=== PATIENT | female | born 1975 | race Caucasian/White ===

== ENCOUNTER 2020-12-07 21:16 | Emergency (ER) | payer OTHER, SELFPAY ==
--- NOTE | ~2020-12-07 | CT_ITS ---
EXAMINATION: CT abdomen pelvis w con DATE: 12/08/2020 00:23 INDICATION: Lower abdominal tenderness and vomiting. TECHNIQUE: Computed tomography (CT) of the abdomen and pelvis was performed with 100 mL Omnipaque-350 intravenous contrast. Automated exposure control and iterative reconstruction technique were employe d. The dose-length product was 387.77 mGy-cm. COMPARISON: None FINDINGS: Lung bases are clear. Heart size is normal. No pericardial or pleural effusion. Cholecystectomy clips at the gallbladder fossa. Liver, spleen, pancreas, bilateral adrenal glands and kidneys are normal. Normal appendix. No bowel obstruction. Bladder is normal. A couple nabothian cysts at the cervix. Pat ient is reportedly post hysterectomy with small amount of residual lower uterine segment. Several sma ll fluid-filled structures at the left adnexa which could represent ovarian cysts/follicles or potent ially a hydrosalpinx measuring up to 1.9 cm in maximal diameter. No free intraperitoneal gas or fluid . No pathologically enlarged abdominal or pelvic lymphadenopathy. Bones are unremarkable. IMPRESSION: 1. No acute intra-abdominal/pelvic process. 2. Several small left ovarian cysts/follicles versus potentially a left hydrosalpinx. Reviewed, dictated and finalized at location A. IMPRESSION: 1. No acute intra-abdominal/pelvic process. 2. Several small left ovarian cysts/follicles versus potentially a left hydrosa lpinx.
[2020-12-07 21:18] VITALS: BP 117/63; PULSE 83; RESP 20; TEMP 36.4; O2SAT 100
[2020-12-07 21:41] LABS: Basophils Percent Auto 0.4 % (0.2-1.2); Eosinophils Absolute Auto 0.2 K/mm3 (0-0.3); Eosinophils Percent Auto 1.4 % (0-4.4); Hematocrit 43.9 % (37.0-47.0); Hemoglobin 14.5 g/dL (12.0-15.0); Immature Granulocyte Absolute 0.04 K/mm3 (0.00-0.031); Immature Granulocyte Percent A 0.4 % (0-0.5); Lymphocytes Absolute Auto 1.16 K/mm3 (0.9-3.2); Lymphocytes Percent Auto 11.1 % (18.3-44.2); Mean Corpuscular Hemoglobin 28.8 pg (26-34); Mean Corpuscular Volume 87.3 fl (80-100); Monocytes Absolute Auto 1.2 K/mm3 (0.1-0.6); Neutrophils Absolute Auto 7.9 K/mm3 (1.3-6.7); Neutrophils Percent Auto 75.7 % (45.5-73.1); Platelet Count Result 334 k/mm3 (150-375); Red Blood Count 5.03 M/mm3 (4.2-5.4); Red Cell Distribution Width 13.2 % (11.5-14.5); White Blood Count 10.5 K/mm3 (4.5-10.0)
[2020-12-07 21:48] LABS: Add Urine Microscopic? YES; Appearance Urine Cloudy (Clear); Bacteria Urine Trace /hpf; Bilirubin Urine Negative (Negative); Blood Urine Negative (Negative); Color Urine Yellow (Yellow); Glucose Urine UA Negative (Negative); Ketones Urine 1+ mg/dL (Negative); Leukocyte Esterase Ur 2+ LEU/UL (Negative); Mucus Urine Rare /lpf; Nitrate Urine Negative (Negative); Protein Urine 2+ mg/dL (Negative); Specific Grav Ur 1.027 (1.001-1.035); Squamous Epithelial Cell Urine Many /hpf (Few); WBC Urine 0-3 /hpf
[2020-12-07 21:53] LABS: Alanine Aminotransferase 38 U/L (4-35); Albumin Level 3.9 g/dL (3.5-5.1); Alkaline Phosphatase 67 U/L (38-126); Anion Gap 4 mmol/L (8-16); Aspartate Amino Transferase 79 U/L (14-36); Blood Urea Nitrogen 19 mg/dL (7-17); Calcium 8.3 mg/dL (8.4-10.2); Carbon Dioxide 26 mmol/L (22-30); Chloride 107 mmol/L (98-107); Estimated CRCL calculation 80 ml/min; Estimated Glomerular Filt Rate > 60; Glucose 108 mg/dL (65-105); Lipase 85 U/L (23-300); Potassium 3.7 mmol/L (3.4-5.0); Sodium 137 mmol/L (137-145)
[2020-12-07 22:54] VITALS: BP 115/61; PULSE 79; RESP 18; O2SAT 99
--- NOTE | 2020-12-07 23:36 | ED.ABDPAIN ---
HPI - Abdominal Pain General Chief Complaint: Abdominal Pain Stated Complaint: severe abd pain Time Seen by Provider: 12/07/20 23:12 Source: patient Mode of arrival: ambulatory Limitations: no limitations History of Present Illness HPI narrative: This is a 45 year old female who presents for evaluation of right upper abdominal pain. She woke up with pain at 230 am this morning, and her pain has been constant. She also reports she has had nausea with 7 episodes of vomiting. She denies diarrhea, fever or chills. She has tried taking Tums and Zofran without relief of her symptoms. She denies UTI symptoms. She reports having similar pain many years ago and a GI cocktail helped with her pain. Related Data Allergies Allergy/AdvReac Type Severity Reaction Status Date / Time latex Allergy Unknown Unknown Verified 12/02/18 11:24 Review of Systems Review of Systems: All systems reviewed & are unremarkable except as noted in HPI and below Constitutional: Constitutional: Denies chills and Denies fever(s) Cardiovascular: Cardiovascular: Denies chest pain Respiratory: Respiratory: Denies cough and Denies dyspnea Gastrointestinal: Gastrointestinal: Reports abdominal pain, Reports nausea and Reports vomiting [facility] Past Medical History Medical History (Updated 12/08/20 @ 01:29 by Mary Anne Sal MD) Fibromyalgia UTI (urinary tract infection) Surgical History Surgical History (Updated 12/07/20 @ 23:41 by Mary Anne Sal MD) H/O section H/O: hysterectomy Hx of cholecystectomy Social History Social History (Updated 12/07/20 @ 23:41 by Mary Anne Sal MD) Smoking status: Current every day smoker Alcohol intake: never Substance use: never Exam Const: General: no acute distress and alert Orientation/consciousness: patient oriented x3 Chest: Chest palpation & inspection: normal inspection of the chest Resp: Effort & Inspection: normal respiratory effort and no retractions Auscultation: clear to auscultation bilaterally Cardio: Rate: regular rate Rhythm: regular rhythm Heart sounds: no murmurs GI: GI Palp: Yes Soft to palpation, Yes Tenderness to palpation present (GI) (RLQ, suprapubic) and No Guarding due to palpation present (GI) Auscultation: normal bowel sounds Extrem: General: normal to inspection Psych: Mental Status: mental status grossly normal Affect: normal affect Course Reevaluation(s) Reevaluation #1: Patient reports she feels much better after IVF, ofirmev, and zofran. She was able to tolerate water and crackers. She states she is ready for discharge home. I reviewed CT scan resuls adams patient showing left ovarian cyst. Date: 12/08/20 Time: 01:24 Vital Signs Vital signs: Vital Signs Temperature 97.5 F L 12/07/20 21:18 Pulse Rate 83 12/07/20 21:18 Respiratory Rate 20 12/07/20 21:18 Blood Pressure 117/63 12/07/20 21:18 Pulse Oximetry 100 12/07/20 21:18 Temperature 97.5 F L 12/07/20 21:18 Pulse Rate 69 12/08/20 01:30 Respiratory Rate 18 12/08/20 01:30 Blood Pressure 114/60 12/08/20 01:30 Pulse Oximetry 99 12/08/20 01:30 MDM - Abdominal Pain Lab Data Attestation: I reviewed the patient's lab results. Result diagrams: 12/07/20 21:30 12/07/20 21:30 Labs: Lab Results 12/07/20 12/07/20 12/07/20 Range/Units 21:30 21:30 21:35 WBC 10.5 H (4.5-10.0) K/mm3 RBC 5.03 (4.2-5.4) M/mm3 Hgb 14.5 (12.0-15.0) g/dL Hct 43.9 (37.0-47.0) % MCV 87.3 (80-100) fl MCH 28.8 (26-34) pg MCHC 33.0 (32-36) g/dl RDW 13.2 (11.5-14.5) % Plt Count 334 (150-375) k/mm3 MPV 10.0 (7.4-10.4) fl Immature Gran % (Auto) 0.4 (0-0.5) % Neut % (Auto) 75.7 H (45.5-73.1) % Lymph % (Auto) 11.1 L (18.3-44.2) % Pickett % (Auto) 11.0 H (2.6-8.5) % Eos % (Auto) 1.4 (0-4.4) % Baso % (Auto) 0.4 (0.2-1.2) % Lymph # (Auto) 1.16 (0.9-3.2) K/mm3 Pickett # (
[2020-12-08] MEDS: ONDANSETRON INJ 4 MG/2 ML VIAL IV PUSH (00:05)
[2020-12-08] MEDS: LACTATED RINGERS 1,000 ML 999 ML IV CONT (00:06)
[2020-12-08 01:30] VITALS: BP 114/60; PULSE 69; RESP 18; O2SAT 99
== END 2020-12-08 01:41 | disposition home or self-care (01) ==
PROVIDERS: Emergency Medicine; Emergency Provider General Practice; PCP Nurse Practitioner Adult Health
DX: K52.9 Noninfective gastroenteritis and colitis, unspecified (principal); E86.0 Dehydration; N83.202 Unspecified ovarian cyst, left side; M79.7 Fibromyalgia; Z87.440 Personal history of urinary (tract) infections; F17.200 Nicotine dependence, unspecified, uncomplicated
CPT/HCPCS: 36415; 74177; 80053; 81001; 83690; 85025; 96365; 96375; 99284; J0131; J2405; J7120; Q9967

== ENCOUNTER 2021-02-16 17:27 | Emergency (ER) | payer OTHER, SELFPAY ==
--- NOTE | ~2021-02-16 | XR_ITS ---
EXAMINATION: XR chest 2V DATE: 02/16/2021 17:57 INDICATION: Cough and diminished breath sounds in the right lower lung. TECHNIQUE: PA and lateral views of the chest were obtained. COMPARISON: Chest radiograph dated 12/02/2018 FINDINGS: The lungs remain clear with no focal airspace opacities, pulmonary edema, pleural effusion or pneumot horax. The cardiomediastinal silhouette is normal. Cholecystectomy clips in the right upper quadrant. Bones and soft tissues are unremarkable. IMPRESSION: 1. No acute cardiopulmonary disease. Reviewed, dictated and finalized at location A.
[2021-02-16 17:35] VITALS: BP 127/74; PULSE 83; RESP 16; TEMP 37.1; O2SAT 100
--- NOTE | 2021-02-16 17:41 | ED.URI ---
HPI - URI/Sore Throat General Chief Complaint: Upper Respiratory Infection Stated Complaint: Coughing, Chest pain, Body pain Time Seen by Provider: 02/16/21 17:41 Source: patient and RN notes reviewed History of Present Illness HPI Narrative: Patient is a 45-year-old female who presents the urgent care with complaints of productive cough, body aches, fever, headache, nasal drainage. 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 Patient states symptoms started on Sunday evening and she has been taking [id number] allergy medication, sinus relief and Tylenol and ibuprofen for the fevers. Patient states that it hurts to take deep breaths and cough on the right side . No other acute complaints. No acute distress noted. Patient aware of the plan of care. Some parts of this dictation were generated by voice recognition software and may contain typographical and/or grammatical inaccuracies. Related Data Home Medications Medication Instructions Recorded Confirmed bupropion HCl 150 mg PO QAM 02/16/21 02/16/21 buspirone 10 mg PO DAILY 02/16/21 02/16/21 Allergies Allergy/AdvReac Type Severity Reaction Status Date / Time latex Allergy Unknown Hives Verified 02/16/21 17:46 Review of Systems Review of Systems: Narrative: CONSTITUTIONAL: Reports of fevers EYES: Denies visual changes, redness, or discharge. ENT: Reports of nasal drainage, rhinorrhea, congestion CARDIOVASCULAR: Denies chest pain, palpitations, or edema. RESPIRATORY: Reports a productive cough and pain with deep breathing without dyspnea GASTROINTESTINAL: Denies abdominal pain, nausea, vomiting, or diarrhea. GENITOURINARY: Denies dysuria or hematuria. SKIN: Denies rash or itching. MUSCULOSKELETAL: Denies back pain, joint pain. Reports of body aches NEUROLOGIC: Reported headaches All other systems reviewed are negative, except as documented in HPI. ON LICENSE OF [facility] Past Medical History Medical History (Updated 02/16/21 @ 18:30 by RINA Kinney) Fibromyalgia UTI (urinary tract infection) Surgical History Surgical History (System 01/26/21 @ 10:24 by Kulwant Jean) H/O section H/O: hysterectomy Hx of cholecystectomy Social History Social History (System 01/26/21 @ 10:24 by Kulwant A. Milbrandt) Smoking status: Current every day smoker Alcohol intake: never Substance use: never Comments At the time of my signature, I reviewed and agree with the nursing past medical, surgical, social, and family history. There is no relevant family history pertinent to the patient complaint. Exam Narrative: Exam Narrative: GENERAL: This is a well-nourished, well-developed patient, in no apparent distress. HEAD: normocephalic, atraumatic. EYES: PERRL. Sclera clear/white. Vision is grossly intact. EARS: External ears normal, auditory canals clear and without drainage, TMs normal without perforation. Hearing grossly intact. NOSE: External nose normal, bilateral erythemic nares with clear rhinorrhea, no rhinorrhea. THROAT: Mucous membranes moist, posterior pharynx clear. Mild postnasal drainage NECK: Neck supple, non-tender without lymphadenopathy CARDIOVASCULAR: Regular rate and rhythm without murmurs, gallops, or rubs. RESPIRATORY: Clear to auscultation. Slightly diminished right lower lung sound. No wheezes, rales, or rhonchi. SKIN: warm, intact with no suspicious lesions or rash, good texture and turgor. NEURO: awake, alert, and oriented to person, place and time. There were no obvious focal neurologic abnormalities. EXTREMITIES: No clubbing, cyanosis, or edema. Course Vital Signs Vital signs: Vital Signs Temperature 98.7 F 02/16/21 17:35 Pulse Rate 83 02/16/21 17:35 Respiratory Rate 16 02/16/21 17:35 Blood Pressure 127/74 02/16/21 17:35 Pulse Oximetry 100 02/16/21 17:35 Temperature 98.7 F 02/16/21 17:47 Pulse Rate 83 02/16/21 17:47 Respiratory Rate 16 06/
[2021-02-16 17:47] VITALS: BP 127/74; PULSE 83; RESP 16; TEMP 37.1; O2SAT 100
== END 2021-02-16 18:42 | disposition home or self-care (01) ==
PROVIDERS: Emergency Provider Nurse Practitioner Family; PCP Nurse Practitioner Adult Health
DX: J32.9 Chronic sinusitis, unspecified (principal); J30.89 Other allergic rhinitis; Z87.440 Personal history of urinary (tract) infections; M79.7 Fibromyalgia; F17.200 Nicotine dependence, unspecified, uncomplicated
CPT/HCPCS: 71046; 87081; 87804; 87880; 99213; G0463

== ENCOUNTER 2021-02-21 08:29 | Emergency (ER) | payer OTHER, SELFPAY ==
[2021-02-21 08:34] VITALS: BP 139/56; PULSE 79; RESP 18; TEMP 36.6; O2SAT 100
--- NOTE | 2021-02-21 08:40 | ED.GENADULT ---
HPI - General Adult General Chief complaint: Urogenital-Female Stated complaint: Possible UTI Time Seen by Provider: 02/21/21 08:41 Source: patient and RN notes reviewed Mode of arrival: ambulatory Limitations: no limitations History of Present Illness HPI narrative: 45-year-old female presents with urinary complaints for 1 day. Crystal reports increasing hematuria, pressure, burning, and frequency with urination this morning. Dysuria consist of burning, frequency, and urgency.? No treatment.? Denies fever. No significant pelvic pain. No vaginal discharge.? No concerns for STDs. Exacerbating factors urinating.? Denies vaginal bleeding. LMP hysterectomy.? No flank pain. Denies nausea, vomiting, and abdominal pain.? Tolerating liquids well.? Remains active. The patient reports she was diagnosed with COVID-28 December 2019. The patient reports she is not waiting for the results of a COVID-19 lab test. The patient reports she does not have chills, weakness, or fatigue. The patient reports she does not have a new or worsening cough or shortness of breath. Denies chest pain. The patient reports she does not have any rhinorrhea, congestion, sore throat, loss of taste or smell, and diarrhea. Denies recent traveling. Denies concerns for COVID-19 or exposures. At this time, the patient is not suspected of having COVID-19. Some parts of this dictation were generated by voice recognition software and may contain typographical and/or grammatical inaccuracies. Related Data Home Medications Medication Instructions Recorded Confirmed bupropion HCl 150 mg PO QAM 02/16/21 02/21/21 buspirone 10 mg PO DAILY 02/16/21 02/21/21 Allergies Allergy/AdvReac Type Severity Reaction Status Date / Time latex Allergy Unknown Hives Verified 02/21/21 08:38 Review of Systems Review of Systems: Narrative: CONSTITUTIONAL: Denies fever, chills, sweats. EYES: Denies visual changes, redness, discharge. ENT: Denies rhinorrhea, congestion, sore throat, otalgia. CARDIOVASCULAR: Denies chest pain, palpitations, edema. RESPIRATORY: Denies dyspnea, wheezing, cough. GASTROINTESTINAL: Denies abdominal pain, nausea, vomiting, diarrhea. GENITOURINARY: Complains of dysuria (burning, frequency, and urgency), hematuria. Denies abnormal discharge. SKIN: Denies rash or itching. MUSCULOSKELETAL: Denies acute back pain, joint pain, or myalgia. NEUROLOGIC: Denies numbness or focal weakness. PSYCHIATRIC: Denies anxiety or depression. All systems reviewed & are unremarkable except as noted in HPI and below. [facility] Past Medical History Medical History (Updated 02/21/21 @ 10:30 by RINA Donovan) Anxiety delivery delivered Cubital tunnel syndrome Fibromyalgia UTI (urinary tract infection) Surgical History Surgical History (Updated 02/21/21 @ 10:30 by RINA Donovan) H/O section X3 H/O: hysterectomy History of carpal tunnel surgery bilateral History of elbow surgery cubital tunnel release-bilateral application KIM did not see you under History of tonsillectomy Hx of cholecystectomy Family History Family History (Updated 02/21/21 @ 08:53 by RINA Donovan) Father Alive and well Mother Alive and well Social History Social History (Updated 02/21/21 @ 08:54 by RINA Donovan) Smoking status: Former smoker Tobacco type: cigarettes Second hand tobacco smoke exposure: No Smoking end date: 09/10/18 Alcohol intake: current Substance use: never Substance use type: does not use Living arrangements: with family Occupation/Education: occupation Gender identity (if verbalized by the patient): Female Sexual Orientation (if Verbalized by the Patient): Straight or Heterosexual Comments At time of signature, agree with the nurse past medical, surgical, social, and family history.? There is no relevant family history pertinent to the presenting compla [id number]. Exam Narrative: Exa
== END 2021-02-21 09:05 | disposition home or self-care (01) ==
PROVIDERS: Emergency Provider Nurse Practitioner Family; PCP Nurse Practitioner Adult Health
DX: R30.0 Dysuria (principal); Z87.891 Personal history of nicotine dependence; F41.9 Anxiety disorder, unspecified; M79.7 Fibromyalgia
CPT/HCPCS: 81003; 87077; 87086; 87088; 87186; 99213; G0463

== ENCOUNTER 2021-12-27 14:14 | Emergency (ER) | payer BC, OTHER, SELFPAY ==
[2021-12-27 14:20] VITALS: BP 135/82; PULSE 84; RESP 16; TEMP 36.8; O2SAT 99
--- NOTE | 2021-12-27 15:34 | ED.FEMALEGU ---
HPI - Female Genitourinary General Chief complaint: Ear Stated complaint: Ear Pain/Urinary Problem Time Seen by Provider: 12/27/21 15:34 Source: patient, RN notes reviewed and old records reviewed Mode of arrival: ambulatory Limitations: no limitations History of Present Illness HPI Narrative: 46 year old female who presents to [facility] care with complaint of urinary tract infection symptoms of burning with urination, urgency and frequency since Sunday. Patient also states complaints of left ear pain for the past week which has increased in intensity denies any nasal drainage cough or congestion, report pain to gland under left ear.. Patient denies any fevers or chills or sweats denies any nausea vomiting or diarrhea. Patient has been taking Azo and did take 2 doses of oral Bactrim she had leftover from previous urinary tract infection. Patient denies any vaginal discharge or any concern for STD exposure. MD elicited complaint: dysuria and UTI Pertinent past history: other (UTI) Related Data Home Medications Medication Instructions Recorded Confirmed bupropion HCl 150 mg PO QAM 02/16/21 02/21/21 buspirone 10 mg PO DAILY 02/16/21 02/21/21 Allergies Allergy/AdvReac Type Severity Reaction Status Date / Time latex Allergy Unknown Hives Verified 02/21/21 08:38 Review of Systems Review of Systems: CONSTITUTIONAL: Denies fever, chills, or sweats. EYES: Denies visual changes, redness, or discharge. ENT: Denies rhinorrhea, congestion, sore throat, positive for left otalgia. CARDIOVASCULAR: Denies chest pain, palpitations, or edema. RESPIRATORY: Denies cough or dyspnea. GASTROINTESTINAL: Denies abdominal pain, nausea, vomiting, or diarrhea. GENITOURINARY: Positive for dysuria denies any visible hematuria. SKIN: Denies rash or itching. MUSCULOSKELETAL: Denies back pain, joint pain, or myalgia. NEUROLOGIC: Denies headache, numbness, or weakness. PSYCHIATRIC:Positive for history of anxiety or depression. All systems reviewed & are unremarkable except as noted in HPI and below PMFSH Past Medical History Medical History Anxiety delivery delivered Cubital tunnel syndrome Fibromyalgia UTI (urinary tract infection) Surgical History Surgical History H/O section X3 H/O: hysterectomy History of carpal tunnel surgery bilateral History of elbow surgery cubital tunnel release-bilateral application KIM did not see you under History of tonsillectomy Hx of cholecystectomy Family History Family History Father Alive and well Mother Alive and well Social History Social History Smoking status: Former smoker Tobacco type: cigarettes Second hand tobacco smoke exposure: No Smoking end date: 09/10/18 Alcohol intake: current Substance use: never Substance use type: does not use Gender identity (if verbalized by the patient): Female Sexual Orientation (if Verbalized by the Patient): Straight or Heterosexual Comments At time of signature, agree with nursing past medical, surgical, social and family history. There is no relevant family history pertinent to the presenting complaint Exam Narrative: GENERAL: Well-appearing, well-nourished, and in no acute distress. HEAD: Normocephalic, atraumatic. EYES: PERRLA and EOMI. ENT: Nares with minimal redness, clear rhinorrhea no epistaxis. Mucous membranes moist.Left TM normal with dull light reflex, no tragus noted, Right TM normal with good light reflex, throat pink with no lesions or exudates,tonsils absent NECK: Supple. no lymphadenopathy CHEST: Clear to auscultation. No respiratory distress.SAO2 99% on room air HEART: Regular rate and rhythm. No murmur heard. Normal peripheral pulses. ABDOMEN: Soft, nontender to palpation, nondistended,
== END 2021-12-27 15:54 | disposition home or self-care (01) ==
PROVIDERS: Emergency Provider Registered Nurse; PCP Nurse Practitioner Adult Health
DX: N39.0 Urinary tract infection, site not specified (principal); H92.02 Otalgia, left ear; Z87.891 Personal history of nicotine dependence; F41.9 Anxiety disorder, unspecified; M79.7 Fibromyalgia
CPT/HCPCS: 81003; 87086; 99213; G0463

== ENCOUNTER 2022-11-08 09:24 | Emergency (ER) | payer OTHER, SELFPAY ==
--- NOTE | 2022-11-08 09:29 | ED.FEMALEGU ---
HPI - Female Genitourinary General Chief complaint: Urogenital-Female Stated complaint: Urinary Problem Time Seen by Provider: 11/08/22 09:29 Source: patient and RN notes reviewed History of Present Illness HPI Narrative: Patient is a 46-year-old female who presents to urgent care with complaints of a possible UTI due to left lower back pain that started on Sunday, nausea and vomiting on Sunday, hematuria, dysuria. Patient has a strong history of recurrent UTIs with the last 1 being approximately 1 month ago. Patient does take Macrobid on occasion, 50 mg, to try to prevent the recurrent UTIs. Patient has been taking Pyridium. Patient does have an appointment with the urologist in 6 weeks. Denies any abdominal discomfort at this time or fevers. No other acute complaints. No acute distress noted. Patient aware of the plan of care. Some parts of this dictation were generated by voice recognition software and may contain typographical and/or grammatical inaccuracies. Related Data Home Medications Medication Instructions Recorded Confirmed bupropion HCl 300 mg 24 hr tablet, 300 mg PO DAILY 11/08/22 11/08/22 extended release Allergies Allergy/AdvReac Type Severity Reaction Status Date / Time phenazopyridine [From Azo] Allergy Intermediate Rash Verified 11/08/22 09:49 latex Allergy Unknown Hives Verified 11/08/22 09:48 Review of Systems Review of Systems: CONSTITUTIONAL: Denies fever, chills, or sweats. EYES: Denies visual changes, redness, or discharge. ENT: Denies rhinorrhea, congestion, sore throat, or otalgia. CARDIOVASCULAR: Denies chest pain, palpitations, or edema. RESPIRATORY: Denies cough or dyspnea. GASTROINTESTINAL: Reports of lower abdominal discomfort with intermittent nausea vomiting 2 days ago GENITOURINARY: Reports of dysuria hematuria SKIN: Denies rash or itching. MUSCULOSKELETAL: Reports of left flank pain NEUROLOGIC: Denies headache, numbness, or weakness. All other systems reviewed are negative, except as documented in HPI. [facility] Past Medical History Medical History Anxiety delivery delivered Cubital tunnel syndrome Fibromyalgia UTI (urinary tract infection) Surgical History Surgical History H/O section X3 H/O: hysterectomy History of carpal tunnel surgery bilateral History of elbow surgery cubital tunnel release-bilateral application KIM did not see you under History of tonsillectomy Hx of cholecystectomy Family History Family History Father Alive and well Mother Alive and well Social History Social History Smoking status: Former smoker Tobacco type: cigarettes Second hand tobacco smoke exposure: No Smoking end date: 09/10/18 Alcohol intake: current Substance use: never Substance use type: does not use Living arrangements: with family Occupation/Education: occupation Gender identity (if verbalized by the patient): Female Sexual Orientation (if Verbalized by the Patient): Straight or Heterosexual Comments At the time of my signature, I reviewed and agree with the nursing past medical, surgical, social, and family history. There is no relevant family history pertinent to the patient complaint. Exam Narrative: GENERAL: This is a well-nourished, well-developed patient, in no apparent distress. HEAD: normocephalic, atraumatic. EYES: PERRL. Sclera clear/white. Vision is grossly intact. EARS: External ears normal NOSE: External nose normal with no obvious nasal discharge, nares without redness, no rhinorrhea. THROAT: Mucous membranes moist NECK: Neck supple CARDIOVASCULAR: Regular rate and rhythm RESPIRATORY: Clear to auscultation. Breath sounds equal bilaterally. No wheezes, rales, or rhonchi. GASTROINTESTINAL:
[2022-11-08 09:31] VITALS: BP 110/70; PULSE 81; RESP 16; TEMP 36.4; O2SAT 99
== END 2022-11-08 10:03 | disposition home or self-care (01) ==
PROVIDERS: Emergency Provider Nurse Practitioner Family; PCP Family Medicine
DX: N39.0 Urinary tract infection, site not specified (principal); Z87.891 Personal history of nicotine dependence
CPT/HCPCS: 81003; 87086; 99213; G0463

== ENCOUNTER 2024-04-29 09:11 | Outpatient (CLI) | payer OTHER, SELFPAY ==
[2024-04-29 18:40] LABS: Hematocrit 45.1 % (37.0-47.0); Mean Corpuscular Volume 93.6 fl (80-100); Mean Platelet Volume 10.5 fl (7.4-10.4); Platelet Count Result 360 k/mm3 (150-375); Red Blood Count 4.82 M/mm3 (4.2-5.4); Red Cell Distribution Width 14.3 % (11.5-14.5)
[2024-04-29 18:41] LABS: Alanine Aminotransferase 38 U/L (6-35); Albumin Level 4.3 g/dL (3.5-5.1); Alkaline Phosphatase 71 U/L (38-126); Anion Gap 9 mmol/L (4-12); Aspartate Amino Transferase 62 U/L (14-36); Bilirubin,Total 0.7 mg/dL (0.2-1.3); Blood Urea Nitrogen 9 mg/dL (7-17); Carbon Dioxide 26 mmol/L (22-30); Chloride 102 mmol/L (98-107); Cholesterol 186 mg/dL (0-200); Estimated Glomerular Filt Rate > 60; Glucose 96 mg/dL (65-110); HDL Direct 54 mg/dL; Potassium 4.2 mmol/L (3.4-5.0); Sodium 137 mmol/L (137-145); Triglycerides 185 mg/dL (<150)
[2024-04-29 18:53] LABS: LDL Cholesterol Direct 87 mg/dL
[2024-04-29 19:06] LABS: Free T4 Free Thyroxine 0.82 ng/mL (0.78-2.19); Vitamin D 25 Hydroxy 21.3 ng/mL
[2024-05-02 10:29] LABS: Thyroid Peroxidase Antibodies <1 IU/mL (<9)
== END 2024-04-29 09:12 | disposition home or self-care (01) ==
LOC: ANHBWCLAB 09:15
PROVIDERS: PCP Nurse Practitioner Adult Health; Visit Provider Nurse Practitioner Adult Health
DX: Z13.9 Encounter for screening, unspecified (principal); R53.83 Other fatigue
CPT/HCPCS: 36415; 80053; 80061; 82306; 82607; 84439; 84443; 85027; 86376

== ENCOUNTER 2024-05-15 16:32 | Outpatient (CLI) | payer OTHER, SELFPAY ==
[2024-05-15 17:04] LABS: Add Urine Microscopic? YES; Appearance Urine Clear (Clear); Bacteria Urine None Seen /hpf; Bilirubin Urine 1+ (Negative); Blood Urine Negative (Negative); Color Urine Dark Yellow (Yellow); Glucose Urine UA Negative (Negative); Ketones Urine Negative (Negative); Leukocyte Esterase Ur Trace LEU/UL (Negative); Need Manual Microscopic Reviewed; Nitrate Urine Positive (Negative); Non Pathogenic Casts 0-2; Protein Urine Negative (Negative); RBC Urine 0-2 /hpf (0-2); Specific Grav Ur 1.008 (1.001-1.035); Squamous Epithelial Cell Urine None Seen /hpf (Few); WBC Urine 0-5 /hpf (0-3); pH Urine 7.5 (5.0-9.0)
== END 2024-05-15 16:33 | disposition home or self-care (01) ==
LOC: ANHLAB 16:34
PROVIDERS: PCP Nurse Practitioner Adult Health; Visit Provider Nurse Practitioner Adult Health
DX: R39.9 Unspecified symptoms and signs involving the genitourinary system (principal)
CPT/HCPCS: 81001; 87086

== ENCOUNTER 2024-06-02 08:19 | Outpatient (CLI) | payer OTHER, SELFPAY ==
[2024-06-02 09:02] LABS: Alanine Aminotransferase 43 U/L (6-35); Albumin Level 4.1 g/dL (3.5-5.1); Alkaline Phosphatase 63 U/L (38-126); Aspartate Amino Transferase 44 U/L (14-36); Bilirubin,Total 0.8 mg/dL (0.2-1.3)
== END 2024-06-02 08:20 | disposition home or self-care (01) ==
LOC: ANHLAB 08:20
PROVIDERS: PCP Nurse Practitioner Adult Health; Visit Provider Nurse Practitioner Adult Health
DX: E03.9 Hypothyroidism, unspecified (principal); R74.8 Abnormal levels of other serum enzymes
CPT/HCPCS: 36415; 80076; 84443

== ENCOUNTER 2024-06-19 12:00 | Emergency (ER) | payer OTHER, SELFPAY ==
[2024-06-19 12:08] VITALS: BP 138/78; PULSE 83; RESP 18; TEMP 36.5; O2SAT 99
--- NOTE | 2024-06-19 12:11 | ED.URI ---
HPI - URI/Sore Throat General Chief Complaint: Upper Respiratory Infection Stated Complaint: Cold symptoms Time Seen by Provider: 06/19/24 12:14 Source: patient, RN notes reviewed and old records reviewed Mode of arrival: ambulatory Limitations: no limitations History of Present Illness HPI Narrative: Patient presents with complaints of headache, fever, and sore throat. Patient reports that she had positive home COVID test this past Sunday, but sore throat is worsening. Has had multiple sick contacts. She has been taking oywt-otq-[id number] remedies with minimal relief. No drooling or stridor. Denies any injury or trauma Related Data Allergies Allergy/AdvReac Type Severity Reaction Status Date / Time phenazopyridine [From Azo] Allergy Intermediate Rash Verified 06/19/24 12:15 latex Allergy Unknown Hives Verified 06/19/24 12:15 Review of Systems Review of Systems: All systems reviewed & are unremarkable except as noted in HPI and below Constitutional: Constitutional: Reports no additional constitutional complaints, Reports chills, Reports fever(s), Reports headache(s) and Reports lethargy ENT: Reports system reviewed and no additional complaints, except as documented Cardiovascular: Cardiovascular: Reports no additional cardiovascular complaints Respiratory: Respiratory: Reports no additional respiratory complaints Gastrointestinal: Gastrointestinal: Reports no additional gastrointestinal complaints PMFSH Past Medical History Medical History Anxiety delivery delivered Cubital tunnel syndrome Fibromyalgia UTI (urinary tract infection) Surgical History Surgical History H/O section X3 H/O: hysterectomy History of carpal tunnel surgery bilateral History of elbow surgery cubital tunnel release-bilateral application KIM did not see you under History of tonsillectomy Hx of cholecystectomy Family History Family History (Updated 04/29/24 @ 08:38 by Amalia Vallecillo MA) Father Alive and well Hypertension Mother Alive and well Hypertension Heart disease Disorder of thyroid Grandparent Cancer Heart disease Hypertension Grandparent Cancer Diabetes mellitus Heart disease Cerebrovascular accident Social History Social History (Updated 04/29/24 @ 08:39 by Amalia Vallecillo MA) Smoking status: Former smoker Tobacco type: cigarettes and e-cigarettes/vaping Second hand tobacco smoke exposure: No Smoking end date: 09/10/18 Alcohol intake: current Alcohol use details: Beer Substance use: never Substance use type: does not use Lack of Transportation: No Lack of Food: Never True Current Housing: I Have Housing Concerned About Future Housing: No Difficulty Paying Gas/Electric Bills: No Difficulty Paying for Meds: No Currently Unemployed: No Education: Associate Degree Difficulty w/ Childcare or Family Care: No Living arrangements: with family Occupation/Education: occupation Gender identity (if verbalized by the patient): Female Sexual Orientation (if Verbalized by the Patient): Straight or Heterosexual Agree to blood products: Yes Comments At the time of my signature, I reviewed and agree with the nursing past medical, surgical, social, and family history. There is no relevant family history pertinent to the patient complaint. Exam Const: General: cooperative, no acute distress, alert and awake Orientation/consciousness: oriented to person, oriented to place and oriented to time HENMT: Head: normal to inspection Mouth: Yes moist mucous membranes Throat: abnormal tonsil bilateral erythema and hypertrophy 2+ Neck: Lymphatic: lymphadenopathy (anterior cervical) Resp: Effort & Inspection: normal respiratory effort and able to speak in complete sentences Auscultation: clear to auscultation bilaterally, no crackles, no
[2024-06-19 12:26] LABS: EDSTREPNEGPOS1 Positive (Negative)
== END 2024-06-19 12:31 | disposition home or self-care (01) ==
PROVIDERS: Emergency Provider Nurse Practitioner Family; PCP Nurse Practitioner Adult Health
DX: J02.0 Streptococcal pharyngitis (principal); Z87.891 Personal history of nicotine dependence; M79.7 Fibromyalgia
CPT/HCPCS: 87880; 99213; G0463

== ENCOUNTER 2024-07-09 17:37 | Outpatient (CLI) | payer OTHER, SELFPAY ==
[2024-07-11 20:28] LABS: Amphetamines POSITIVE ng/mL (<500); Barbiturates NEGATIVE ng/mL (<300); Benzodiazepines NEGATIVE ng/mL (<100); Cocaine Metabolite NEGATIVE ng/mL (<150); Marijuana Metabolite NEGATIVE ng/mL (<20); Methadone Metabolite NEGATIVE ng/mL (<100); Opiates NEGATIVE ng/mL (<100); Oxidant NEGATIVE mcg/mL (<200); PCP NEGATIVE ng/mL (<25)
== END 2024-07-09 17:38 | disposition home or self-care (01) ==
PROVIDERS: PCP Nurse Practitioner Adult Health; Visit Provider Nurse Practitioner Adult Health
DX: Z51.81 Encounter for therapeutic drug level monitoring (principal)
CPT/HCPCS: 80307

== ENCOUNTER 2024-09-29 13:54 | Outpatient (CLI) | payer OTHER, SELFPAY ==
--- NOTE | ~2024-09-29 | MM_ITS ---
CORRECTED REPORT corrected examination description w eliana JMG 10/01/24 This report was recreated on 10/01/24. Original report was TUTOR EXAMINATION: MM screening mammo BI w eliana HISTORY: Screening TECHNIQUE: Craniocaudal and mediolateral oblique 3-D tomosynthesis images were obtained and synthetic 2-D images were generated. CAD analysis was submitted and interpreted. COMPARISON: Comparison to multiple prior studies sequentially, with oldest reviewed study dated 12/20/2017. BREAST PARENCHYMAL COMPOSITION: Not dense: There are scattered areas of fibroglandular density. FINDINGS: There is no evidence of suspicious mass, calcification, or architectural distortion to suggest malignancy in either breast. There has been no suspicious interval change. IMPRESSION: 1. No mammographic evidence of malignancy. 2. Recommend routine screening mammography in one year. BI-RADS Category 1: Negative Reviewed, dictated and finalized at location A. TUTOR MTDD
--- OUTSIDE RECORDS SUMMARY | 2024-10-02 13:52 | XMS_ITS | CONTINUITY OF CARE DOCUMENT ---
Author Name carlos gonzalez Address Unknown Organization [facility] Address [id number] [place] [address] [address] [place] [address] Phone [phone] Care Team Providers Care Weed Inspector Name Role Phone Breezy Eisenberg MD Unavailable [phone] LAKESHA LAM Unavailable LAKESHA LAM Unavailable [phone] INSURANCE PROVIDERS Payer name Policy type / Coverage type [place] red constitution party ID [place] [employer] Medicaid [id number]
--- OUTSIDE RECORDS SUMMARY | 2024-10-02 13:52 | XMS_ITS | Continuity of Care Document ---
Author Organization [facility] Address [address] [place] [address] [address] [place] [address] Phone Care Team Providers Care Bandage Maker Name Role Phone Alegre OD, Dayday Unavailable Unavailable Procedures Procedure Date Eye Exam, New Patient Refraction Advance Directives Directive Yes / No Effective Date File Name No Information Encounters Encounter Description Practice Location Reason(s) For Visit Diagnoses Date Provider Providers Copied on Encounter [facility], [address] [place] [address] [address], [place], [place], [id number], [place] tel:[phone] [facility] (formerly [facility]) No Information 2-201 0 Alegre OD Dayday. [address] , [address], [place], [address], [place]. tel:[phone] Family History Family Member Type Diagnosis Age At Onset No Information Payers Payer name Insurance type Covered libertarian ID Authoriza tion(s) Medicaid [facility] [id number] Social History Type Description Quantity Date Captured [...]
== END 2024-09-29 13:55 | disposition home or self-care (01) ==
PROVIDERS: PCP Nurse Practitioner Adult Health; Visit Provider Nurse Practitioner Adult Health
DX: Z12.31 Encounter for screening mammogram for malignant neoplasm of breast (principal)
CPT/HCPCS: 77063; 77067

== ENCOUNTER 2025-01-13 09:45 | Outpatient (CLI) | payer OTHER, SELFPAY ==
--- NOTE | ~2025-01-13 | XR_ITS ---
Lumbosacral Spine: AP and lateral views Clinical History: Pain Findings: The normal lordotic curve is maintained. The vertebral bodies and posterior elements are i ntact. The intervertebral disc spaces are preserved. Mild to moderate facet arthropathy present thro ughout the lumbar spine. The sacroiliac joints are normally outlined. Impression: Mild to moderate facet arthropathy throughout the lumbar spine. Reviewed, dictated and finalized at location . Impression: Mild to moderate facet arthropathy throughout the lumbar spine.
--- NOTE | ~2025-01-13 | XR_ITS ---
Cervical Spine: AP, lateral, open-mouth views Clinical History: Pain Findings: The normal lordotic curve is maintained. The vertebral bodies and posterior elements appea r intact. The intervertebral disc spaces are well maintained. Pre-vertebral soft tissues are unremar kable. Impression: No significant abnormality is seen. Reviewed, dictated and finalized at [facility]. Impression: No significant abnormality is seen.
--- OUTSIDE RECORDS SUMMARY | 2025-01-13 10:27 | XMS_ITS | Continuity of Care Document ---
Author Organization [facility] Address [address] [place] [address] [address] [place] [address] Phone Care Team Providers Care Cricket Coach Name Role Phone Alegre OD, Dayday Unavailable Unavailable Procedures Procedure Date Eye Exam, New Patient Refraction Advance Directives Directive Yes / No Effective Date File Name No Information Encounters Encounter Description Practice Location Reason(s) For Visit Diagnoses Date Provider Providers Copied on Encounter [facility], [address] [place] [address] [address], [place], [place], [id number], [place] tel:[phone] [facility] No Information 2-201 0 Alegre OD Dayday. [address] , [address], [place], [address], [place]. tel:[phone] Family History Family Member Type Diagnosis Age At Onset No Information Payers Payer name Insurance type Covered democrat ID Authoriza tion(s) Medicaid [facility] [id number] Social History Type Description Quantity Date Captured [...]
--- OUTSIDE RECORDS SUMMARY | 2025-01-13 10:27 | XMS_ITS | CONTINUITY OF CARE DOCUMENT ---
Author Name carlos gonzalez Address Unknown Organization [facility] Address [id number] [place] [address] [address] [place] [address] Phone [phone] Care Team Providers Care Food Processing Chemist Name Role Phone Breezy Eisenberg MD Unavailable [phone] LAKESHA LAM Unavailable [phone] LAKESHA LAM Unavailable INSURANCE PROVIDERS Payer name Policy type / Coverage type [place] red libertarian ID [place] [employer] Medicaid [id number]
[2025-01-13 20:03] LABS: Alanine Aminotransferase 38 U/L (6-35); Albumin Level 4.6 g/dL (3.5-5.1); Alkaline Phosphatase 86 U/L (38-126); Anion Gap 8 mmol/L (4-12); Aspartate Amino Transferase 66 U/L (14-36); Blood Urea Nitrogen 14 mg/dL (7-17); Calcium 9.2 mg/dL (8.4-10.2); Carbon Dioxide 29 mmol/L (22-30); Chloride 104 mmol/L (98-107); Estimated Glomerular Filt Rate > 60; Glucose 86 mg/dL (65-110); Potassium 4.5 mmol/L (3.4-5.0); Sodium 141 mmol/L (137-145)
[2025-01-13 20:33] LABS: Vitamin D 25 Hydroxy 39.4 ng/mL
== END 2025-01-13 09:46 | disposition home or self-care (01) ==
LOC: ANHBWCLAB 09:47
PROVIDERS: PCP Nurse Practitioner Adult Health; Visit Provider Nurse Practitioner Adult Health
DX: M47.896 Other spondylosis, lumbar region (principal); M54.2 Cervicalgia; R74.8 Abnormal levels of other serum enzymes; R53.83 Other fatigue; E03.9 Hypothyroidism, unspecified
CPT/HCPCS: 36415; 72040; 72100; 80053; 82306; 82607; 84443

== ENCOUNTER 2025-04-14 12:31 | Emergency (ER) | payer OTHER, SELFPAY ==
[2025-04-14 12:36] VITALS: BP 118/94; PULSE 90; RESP 20; TEMP 36.5; O2SAT 100
--- NOTE | 2025-04-14 12:41 | ECG_ITS ---
Test Date: 2025-04-14 12:47:47 Measurements Intervals [place] Rate: 90 P: 45 WV: 158 QRS: 66 QRSD: 97 T: 54 QT: 362 QTc: 444 Interpretive Statements SINUS RHYTHM NORMAL ECG No previous ECG available for comparison Electronically Signed On 04-14-2025 12:53:04 CDT by Shailesh Leung D.O.
--- NOTE | 2025-04-14 12:41 | ED.GENADULT ---
HPI - General Adult General Chief complaint: Chest Pain Stated complaint: neck/shoulder/chest heaviness Time Seen by Provider: 04/14/25 12:47 Source: patient Mode of arrival: ambulatory Limitations: no limitations History of Present Illness HPI narrative: 49 y/o female presented for c/o left chest heaviness, onset 0300. Endorses associated tingling to left arm and says it feels weaker. Pt took ibuprofen, and when she woke again, she had neck pain and stiffness. Pt also reports pain into the left upper teeth into the ear. Endorses a known history of arthritis and stenosis to the cervical spine. Denies sob, wheezing, increased fatigue, n/v/d/f/c. Reports mother with CAD early onset, PTCI age 32. Related Data Allergies Allergy/AdvReac Type Severity Reaction Status Date / Time phenazopyridine (From Azo) Allergy Intermediate Rash Verified 04/14/25 12:39 latex Allergy Unknown Hives Verified 04/14/25 12:39 Review of Systems Review of Systems: CONSTITUTIONAL: Denies body aches, fever, chills, or sweats. EYES: Denies visual changes, redness, or discharge. ENT: reports left upper jaw/ear pain Denies rhinorrhea, congestion, sore throat, or otalgia. CARDIOVASCULAR: reports chest pain, Denies palpitations, or edema. RESPIRATORY: Denies cough or dyspnea. GASTROINTESTINAL: Denies abdominal pain, nausea, vomiting, or diarrhea. SKIN: Denies rash MUSCULOSKELETAL: Denies back pain, joint pain, or myalgia. NEUROLOGIC: Denies headache, numbness, tingling, reports left arm weakness. PSYCH: Denies depression or anxiety. All systems reviewed & are unremarkable except as noted in HPI and below PMFSH Past Medical History Medical History Anxiety delivery delivered Cubital tunnel syndrome Fibromyalgia UTI (urinary tract infection) Surgical History Surgical History H/O section X3 H/O: hysterectomy History of carpal tunnel surgery bilateral History of elbow surgery cubital tunnel release-bilateral application KIM did not see you under History of tonsillectomy Hx of cholecystectomy Family History Family History (Updated 04/29/24 @ 08:38 by Amalia Vallecillo MA) Father Alive and well Hypertension Mother Alive and well Hypertension Heart disease Disorder of thyroid Grandparent Cancer Heart disease Hypertension Grandparent Cancer Diabetes mellitus Heart disease Cerebrovascular accident Social History Social History (Updated 04/29/24 @ 08:39 by Amalia Vallecillo MA) Smoking status: Former smoker Tobacco type: cigarettes and e-cigarettes/vaping Second hand tobacco smoke exposure: No Smoking end date: 09/10/18 Alcohol intake: current Alcohol use details: Beer Substance use: never Substance use type: does not use Lack of Transportation: No Lack of Food: Never True Current Housing: I Have Housing Concerned About Future Housing: No Difficulty Paying Gas/Electric Bills: No Difficulty Paying for Meds: No Currently Unemployed: No Education: Associate Degree Difficulty w/ Childcare or Family Care: No Living arrangements: with family Occupation/Education: occupation Gender identity (if verbalized by the patient): Female Sexual Orientation (if Verbalized by the Patient): Straight or Heterosexual Agree to blood products: Yes Comments At time of signature, I have reviewed and agree with nursing past medical, surgical, social and family history unless otherwise noted. Please see nursing chart for further information. There is no relevant family history pertinent to the presenting complaint Exam Narrative: GENERAL: Well-appearing HEAD: Normocephalic, atraumatic. EYES: EOMI. No redness or drainage. Conjunctivae normal. ENT: Mucous membranes pink and moist. Left upper gum without significant swelling or abscess noted. No rhinorrhea. TMs normal bilaterally. Throat normal. Uvula midline. NECK:Decreased AROM due to pain. Tender to left trapezius. Supple. No lymphadenopathy. CHEST: No respiratory distress. Clear to auscultation. HEART: Regular rate and rhythm. No murmur appreciated. Normal peripheral pulses. EXTREMITIES: Normal range of motion; reports left neck/shoulder pain with movement of LUE. No edema. SKIN: Warm, dry, no rash. Capillary refill normal. Normal skin turgor. NEURO: No focal deficits. Alert and oriented x3. Gait steady. PSYCH: Normal affect. Course Course Emergency Course: Patient is aware of diagnosis, understands and agrees to treatment plan. Anticipatory guidance given. Patient agrees to follow-up as directed and is aware of reasons to seek care at the emergency department. Portions of this record may have been created with voice recognition software Level of Care: Express Care Visit Vital Signs Vital signs: Vital Signs Temperature 97.7 F 04/14/25 12:36 Pulse Rate 90 04/14/25 12:36 Respiratory Rate 20 04/14/25 12:36 Blood Pressure 118/94 H 04/14/25 12:36 Pulse Oximetry 100 04/14/25 12:36 Oxygen Delivery Room Air 04/14/25 12:36 Temperature 97.7 F 04/14/25 12:36 Pulse Rate 90 04/14/25 12:36 Respiratory Rate 20 04/14/25 12:36 Blood Pressure 118/94 H 04/14/25 12:36 Pulse Oximetry 100 04/14/25 12:36 Oxygen Delivery Room Air 04/14/25 12:36 Medical Decision Making MDM Narrative Medical decision making narrative: Discussed physical exam findings And EKG. Advised ER transfer for further evaluation given patient's family history. Patient declines at this time. States she made an appt with pcp in 2 weeks. Pt is agreeable to have muscle relaxer for the neck pain and decreased ROM. The patient is AA&Ox3, free from distracting injury. The patient has demonstrated concrete thinking/reasoning, has maintained an high pressure cleaner/reasonable conversation, appears to have intact insight/judgment/reason and therefore has capacity to make decisions. Given the patients presentation, we communicated our concern for chest heaviness in laymans terms. The patient verbalized an understanding. The patient is aware the evaluation is incomplete & many troublesome conditions have not been r/o. We have discussed the need for further ED evaluation. We have discussed the range of possible dx, potential testing & treatment options. Weve made efforts to prevent the pt from leaving AMA. Our discussions included the potential outcomes of leaving AMA, including worsening of their condition, becoming permanently disabled/in pain/critically ill, or . Despite these efforts, we were unable to convince the pt to go to the ER. We have attempted to offer tx/rx/guidance for any dangerous conditions which are most likely and/or dangerous. We have answered all questions and have implored the patient to go to ER [facility] to complete the w/u. A staff member witnessed the patient consenting to AMA. Differential Diagnosis Differential Diagnosis: STEMI, AAA, PE, pneumothorax, cardiac tamponade, esophageal rupture, pneumonia, GERD, musculoskeletal pain, endocarditis, pericarditis, URI, bronchitis, anxiety Vital Signs Vital Signs: Vital Signs Temperature 97.7 F 04/14/25 12:36 Pulse Rate 90 04/14/25 12:36 Respiratory Rate 20 04/14/25 12:36 Blood Pressure 118/94 H 04/14/25 12:36 Pulse Oximetry 100 04/14/25 12:36 Oxygen Delivery Room Air 04/14/25 12:36 Temperature 97.7 F 04/14/25 12:36 Pulse Rate 90 04/14/25 12:36 Respiratory Rate 20 04/14/25 12:36 Blood Pressure 118/94 H 04/14/25 12:36 Pulse Oximetry 100 04/14/25 12:36 Oxygen Delivery Room Air 04/14/25 12:36 reviewed ECG Data EKG #1: Attestation: I personally reviewed and interpreted this ECG as follows: (NSR90 LA 158, QRS 97, QT/ QTC 362/410) ECG completion date: 04/14/25 ECG completion time: 12:47 Prior ECG tracings: not available for review EKG Interpretation: normal rate and sinus rhythm Discharge Plan Discharge Clinical Impression: Chest heaviness, Neck pain Patient Disposition: Left Against Medical Advice Condition: Stable Instructions: Antibiotic Form, Chest Pain (ED), Acute Neck Pain (ED) Additional Instructions: You were advised to transfer to the ER and you decline at this time. You were made aware of the risk of refusal including worsening of your condition and . Report to the ER immediately by calling 911 for any worsening symptoms. Rest. Avoid pushing, pulling, lifting or anything that worsens the symptoms Tylenol 1000mg every 8 hours as needed You can alternate with ibuprofen 600mg Alternate ice/heat to the site. Lidocaine or salon pas pain patch or use pain cream like icy/hot or biofreeze. Follow up with your primary care provider as needed in 1 week Go to the ER for worsening symptoms or concerns Patient Language: [place] Prescriptions: New cyclobenzaprine 10 mg tablet 10 mg PO TID PRN (Reason: muscle spasm) Qty: 10 0RF No Action levothyroxine 50 mcg tablet See Rx Instructions .ROUTE .COMPLEX Qty: 30 2RF Dose Instruction: TAKE 1 TABLET BY MOUTH EVERY DAY Rx Instructions: TAKE 1 TABLET BY MOUTH EVERY DAY cyanocobalamin (vitamin B-12) 1,000 mcg tablet, sublingual 1,000 mcg sublingual DAILY Qty: 90 3RF dextroamphetamine-amphetamine [Adderall] 10 mg tablet 10 mg PO BID Qty: 60 0RF Rx Instructions: administer doses at least 4-6 hours apart Follow-up/Referrals: Britni Bruno APRN [Primary Care Provider] - Time of Disposition: 13:07
== END 2025-04-14 13:10 | disposition left against medical advice (07) ==
PROVIDERS: Emergency Provider Nurse Practitioner Family; PCP Nurse Practitioner Adult Health
DX: R07.89 Other chest pain (principal); M54.2 Cervicalgia; M79.7 Fibromyalgia; M47.812 Spondylosis without myelopathy or radiculopathy, cervical region; M48.02 Spinal stenosis, cervical region; Z87.891 Personal history of nicotine dependence
CPT/HCPCS: 93005; 99213; G0463

== ENCOUNTER 2025-04-29 16:40 | Outpatient (CLI) | payer OTHER, SELFPAY ==
--- OUTSIDE RECORDS SUMMARY | 2010-07-01 07:45 | XMS_ITS | Continuity of Care Document ---
Author Organization [facility] Address [address] [place] [address] [address] [place] [address] Phone Care Team Providers Care Mental Retardation Nurse Name Role Phone Alegre OD, Dayday Unavailable Unavailable Procedures Procedure Date Eye Exam, New Patient Refraction Advance Directives Directive Yes / No Effective Date File Name No Information Encounters Encounter Description Practice Location Reason(s) For Visit Diagnoses Date Provider Providers Copied on Encounter [facility], [address] [place] [address] [address], [place], [place], [id number], [place] tel:[phone] [facility] No Information 2-201 0 Alegre OD Dayday. [address] , [address], [place], [address], [place]. tel:[phone] Family History Family Member Type Diagnosis Age At Onset No Information Payers Payer name Insurance type Covered libertarian ID Authoriza tion(s) Medicaid [facility] [id number] Social History Type Description Quantity Date Captured Comments Sex Female Smoking Status No Information Chief Complaint And Reason For Visit No Information Reason For Referral Reason For Referral No Information History Of Present Illness Encounter Date Complaint History Of Prese nt Illness No Information Functional Status Date Functional Assessmen t No Information Instructions Date Instruction Additional Infor mation No Information Assessments Type Assessment Date No Information Patient Care Teams Name Effective Dates (start - stop) Status Members No Information
--- NOTE | ~2025-04-29 | US_ITS ---
US thyroid INDICATION: Hypothyroidism TECHNIQUE: Real-time sonographic images of the thyroid gland were obtained. COMPARISON: No prior studies for comparison. FINDINGS: The right thyroid lobe measures 5 x 1.1 x 1 cm. The left thyroid lobe measures 4 x 0.9 x 1.4 cm. There is normal echotexture and echogenicity throughout the thyroid gland. No discrete nodules identified. Normal vascular flow is present. IMPRESSION: 1. Normal thyroid without discrete nodule or abnormal vascularity. Reviewed, dictated and finalized at location A.
== END 2025-04-29 16:41 | disposition home or self-care (01) ==
LOC: ANHIMG 16:50
PROVIDERS: PCP Nurse Practitioner Adult Health; Visit Provider Nurse Practitioner Adult Health
DX: E03.9 Hypothyroidism, unspecified (principal)
CPT/HCPCS: 76536